=== PATIENT | male | born 1960 | race Caucasian/White ===

== ENCOUNTER → 2017-05-17 14:20 | Outpatient (CLI) | payer MEDICARE ==
[2017-05-18 14:54] LABS: BASOPHILS 0.2 % (0-2); EOSINOPHILS 1.3 % (0-7); HEMATOCRIT 42.4 % (42.0-54.0); IMMATURE GRANULOCYTES 0.3 % (0-5); LYMPHOCYTES 37.5 % (15-50); MEAN PLATELET VOLUME 12.3 fL (7.4-10.4); MONOCYTES 10.2 % (2-11); NEUTROPHILS 50.5 % (40-80); PLATELET COUNT 142 10x3/uL (130-400); RBC 4.51 10x6/uL (4.20-6.10); WBC 6.1 10x3/uL (4.8-10.8)
[2017-05-18 15:33] LABS: % SATURATION 36 % (15-55); IRON 109 ug/dl (35-150); TOTAL IRON BIND CAPACITY 299 ug/dl (260-445); UNSAT IRON BIND CAPACITY 190 ug/dl (150-375)
== END | disposition home or self-care (01) ==
LOC: D.LABREF 14:20
PROVIDERS: Internal Medicine Gastroenterology
DX: C18.2 Malignant neoplasm of ascending colon (principal)

== ENCOUNTER 2017-06-20 05:16 | Inpatient (IN) | payer MEDICARE ==
[2017-06-19 13:58] LABS: BASOPHILS 0.1 % (0-2); EOSINOPHILS 1.4 % (0-7); HEMATOCRIT 44.5 % (42.0-54.0); HEMOGLOBIN 14.6 g/dL (13.5-17.5); IMMATURE GRANULOCYTES 0.3 % (0-5); MCH 30.5 pg (26.0-34.0); MCHC 32.8 g/dL (31.0-37.0); MCV 93.1 fL (80.0-100.0); MEAN PLATELET VOLUME 11.3 fL (7.4-10.4); MONOCYTES 9.9 % (2-11); NEUTROPHILS 57.3 % (40-80); PLATELET COUNT 125 10x3/uL (130-400); RBC 4.78 10x6/uL (4.20-6.10); RDW 13.9 % (11.5-14.5); WBC 7.2 10x3/uL (4.8-10.8)
[2017-06-19 14:26] LABS: APTT 31.4 SECONDS (22.8-39.4); INR 0.92 (0.85-1.17); PROTIME 12.2 SECONDS (11.6-15.0)
[~2017-06-20 05:16] MED LIST: ASCORBIC ACID500 MG PO; ASPIRIN EC81 M1 PO; CARBATROL300 MG PO; CYCLOBENZAPRINE10 MG PO; DEPAKOTE ER500 MG PO; DETROL LA4 MG PO; ISOSORBIDE MONO60 M1 PO; LAMICTAL25 MG PO; LIPITOR40 MG PO; METOPROLOL TART50 MG PO; MINIPRESS 5 MG C5 MG PO; OMEPRAZOLE40 MG PO; OXYBUTYNIN CHLOR5 MG PO; RISPERDAL4 MG PO; SAW PALMETTO450 MG PO; SYNTHROID200 MC1 PO; TEMAZEPAM30 MG PO; VITAMIN D31000 UNIT PO
[2017-06-20 07:00] VITALS: BP 104/59; BMI 37.5
--- NOTE | 2017-06-20 08:43 | NUR ---
0835 CVL PLACEMENT BY NIKOLE MULLIGAN. PATIENT ALSO NOTED TO HAVING BRUISING ON RIGHT UPPER ARM, NIKOLE.
--- NOTE | 2017-06-20 12:30 | NUR ---
DR PEREZ / DR PRADO SUMMONED TO BEDSIDE FOR EVAL OF POST-DIGOXIN/A-FIB PT CONDITION. 12 LEAD EKG TAKEN. NO IMMEDIATE INTERVENTION PER DR PEREZ.
[2017-06-20 13:20] VITALS: BP 136/73
--- NOTE | 2017-06-20 13:20 | NUR ---
RECEIVED TO FLOOR FROM RECOVERY, NO FAMILY AT BEDSIDE, PT REQUEST WATER, LEMON SWABS GIVEN, DENIES NEEDS, ORIENTED TO ROOM, BED LOWEST POSITION, SCD'S ON, BACK UP WORKER STARTED, CALL LIGHT IN REACH, WILL CONTINUE TO MONITOR
[2017-06-20 14:02] VITALS: BP 136/73; BMI 37.3
--- NOTE | 2017-06-20 15:10 | OP ---
PATIENT NAME: JANELL CASANOVA MEDICAL RECORD: [id number] :64 LOCATION:[id number] ADMISSION DATE:06/20/17 SURGEON: PRABHU SNELL MD DATE OF OPERATION: 06/20/2017 SURGEON: Prabhu Snell MD PREOPERATIVE DIAGNOSIS: Ascending colon mass. POSTOPERATIVE DIAGNOSIS: Ascending colon mass. PROCEDURES PERFORMED: 1. Hand-assisted laparoscopic right hemicolectomy. 2. Laparoscopic cholecystectomy. ANESTHESIA: General. COMPLICATIONS: None. SPECIMENS: 1. Right colon. 2. Gallbladder. Case was clean contaminated. ESTIMATED BLOOD LOSS: 200 cc. OPERATIVE COURSE: After consent was obtained, the patient was taken to the operating room and placed in supine position on the operating table. Next, general anesthesia was given via endotracheal intubation after a time-out was taken to confirm the correct patient and procedure. The abdomen was prepped and draped in typical sterile fashion. An Ioban dressing was placed. Local anesthetic was injected just above the umbilicus. A stab incision was made with an 11 blade trocar. Using the 5-mm bladeless optical trocar, the abdomen was entered under direct laparoscopic vision. Adequate pneumoperitoneum was achieved. The abdominal cavity was inspected. No evidence of bowel injury. No evidence of bleeding. At this time, additional trocars were placed, 5-mm suprapubic trocar, 5-mm right lower quadrant trocar, 12-mm left lower quadrant trocar. The cecum was mobilized. The white line of Toldt was taken down using the Harmonic scalpel. Mobilization of the right colon continued along the line of Toldt. The hepatic flexure was mobilized to the mid transverse colon. There were dense adhesions between the transverse colon and the gallbladder. While dissecting the transverse colon off of the gallbladder, a cholecystotomy was made. At this time, I decided just to perform a laparoscopic cholecystectomy. The peritoneum was incised using electrocautery. Dissection was performed until the critical view was obtained, cystic duct lateral, cystic artery medial. Three clips were placed in the proximal cystic duct, 1 clip distal, and 2 clips in proximal cystic artery. The duct and artery were transected with laparoscopic Metzenbaum scissors. The remaining portion of the gallbladder was dissected off the liver bed using electrocautery. It was removed through the 12-mm trocar. Now that we had full mobilization of the ascending colon, the colon was retracted superiorly. The ileocolic vessels were identified. They were dissected using a combination of electrocautery and Maryland dissector. Once they were completely dissected, the vascular pedicle was taken with the firing of the linear cutting stapler. At this time, a lower midline incision OPERATIVE REPORT [id number] JANELL CASANOVA was made. The GelPort was inserted. The right colon was extracorporealized through the Eduardo retractor. The terminal ileum was transected approximately 5 cm from the ileocecal valve. The transverse colon was transected. The mesentery was taken along the right colon as well as the transverse colon as well as the right branch of the middle colic. This specimen was removed and sent for permanent pathology. A [id number] ileocolonic anastomosis was created. Common enterotomy was made with a linear cutting stapler. Common enterotomy was closed with a linear cutting stapler. Suture line was imbricated using 3-0 silk suture. At this time, the abdomen was copiously irrigated and suctioned. Careful attention was paid to hemostasis, which was obtained with clips and electrocautery. The abdominal cavity was then copiously irrigated. There was no evidence of bowel injury. No evidence of bleeding. At this time, all remaining instruments were removed, trocars were removed, the Eduardo retractor was removed. The fascial incision was closed with #1 looped PDS. All skin incisions were closed with berlin. At the end of the case, all needle and instrument counts were correct. No complications occurred. The patient was extubated and transferred to the PACU in stable condition. TRANSINT:[id number] Voice Confirmation ID: [id number] DOCUMENT ID: [id number] PRABHU SNELL MD at 1510 CC: [id number] DICTATION DATE: 06/20/17 1252 ENT NURSE: 06/20/17 1352 ADM IN [facility] [address] [place] [address]
[2017-06-20 19:30] VITALS: BP 133/67
[2017-06-20 23:30] VITALS: BP 149/91
--- NOTE | 2017-06-21 | NUR ---
PATIENT IS AWAKE, AND ALERT. HE TOLD ME "COME HERE" AND DID HAND MOTION FOR ME TO COME TO HIS ROOM WHEN HE SAW ME IN THE [facility]. WENT IN ROOM, HE RUBBED HIS ABDOMEN AND STATED "HURTING". PATIENT IS HOLDING SYSTEMS PROTECTION TECHNICIAN BUTTON IN HIS HAND. OFFERED PATIENT TO REPOSITION HIM, HE MOTIONED TO RAISE THE HOB, DID SO, THEN HE MOTIONED TO LAY IT BACK. HOB NOW AT 40 DEGREE ANGLE. PATIENT STATED "I WANT MY NURSE." BED IS IN LOWEST POSITION, CALL LIGHT IN REACH. TOLD PATIENT'S ASSIGNED NURSE THAT PATIENT IS REQUESTING HER.
[2017-06-21 04:00] VITALS: BP 166/67
[2017-06-21 06:34] LABS: BASOPHILS 0.1 % (0-2); EOSINOPHILS 0 % (0-7); HEMATOCRIT 38.5 % (42.0-54.0); HEMOGLOBIN 12.6 g/dL (13.5-17.5); IMMATURE GRANULOCYTES 0.1 % (0-5); MCH 30.6 pg (26.0-34.0); MCHC 32.7 g/dL (31.0-37.0); MCV 93.4 fL (80.0-100.0); MONOCYTES 14.9 % (2-11); NEUTROPHILS 69.9 % (40-80); PLATELET COUNT 117 10x3/uL (130-400); RBC 4.12 10x6/uL (4.20-6.10); RDW 14.2 % (11.5-14.5)
[2017-06-21 07:07] LABS: ALBUMIN 2.8 g/dL (3.4-5.0); ALKALINE PHOSPHATASE 87 U/L (46-116); ALT (SGPT) 28 U/L (10-68); CALC OSMOLALITY 280 mosm/kg (275-300); CALCIUM 8.5 mg/dL (8.5-10.1); CARBON DIOXIDE 26.3 mmol/L (21.0-32.0); CHLORIDE - SERUM 106 mmol/L (98-107); GLUCOSE 113 mg/dL (74-106); POTASSIUM - SERUM 3.9 mmol/L (3.5-5.1); PROTEIN - SERUM 6.7 g/dL (6.4-8.2); SODIUM 141 mmol/L (136-145); UREA NITROGEN 9 mg/dL (7-18); eGFR NON AFRICAN AMERICAN 83 mL/min (90-120)
[2017-06-21 07:11] LABS: WBC 9.3 10x3/uL (4.8-10.8)
--- NOTE | 2017-06-21 07:30 | NUR ---
RECIEVED PT DURING WALKING ROUNDS, PT LAYING IN BED WITH COMPLAINTS OF PAIN OF A 7 ON A SCALE OF 1-10. CUSTOMER OPERATIONS INTERN IN USE, FURTHER INSTRUCTED PT ON USE OF CUSTOMER OPERATIONS INTERN. ASSESSMENT DONE PER FLOWSHEET. BED IN LOW POSITION AND CALL LIGHT WITHIN REACH. WILL CONTINUE TO MONITOR.
[2017-06-21 08:31] VITALS: BP 139/64
--- NOTE | 2017-06-21 11:40 | NUR ---
PT TEMP READ 102.7, COVERED REMOVED AND TEMP RECHECKED AT THIS TIME, TEMP 101.4. IV TYLENOL GIVEN PER ORDER. WILL REASSESS.
--- NOTE | 2017-06-21 12:30 | NUR ---
TAUGHT PT ON INCENTIVE SPIROMETER, AND AMBULATED IN HALLWAY 30FT AND BACK TO BED, PT TOLERATED WELL. TEMP 99.8 AT THIS TIME. WILL CONTINUE TO MONITOR.
[2017-06-21 13:28] VITALS: BMI 37.3
[2017-06-21 13:59] VITALS: BP 127/66
[2017-06-21 16:01] VITALS: BP 113/73
[2017-06-21 20:00] VITALS: BP 132/63
--- NOTE | 2017-06-21 20:00 | NUR ---
ASSESSMENT COMPLETED PER FLOWSHEET AT THIS TIME. LEFT SUB-CLAVIAN LR@ 100. RIGHT HAND SL. FROST TO GRAVITY DRAINAGE WITH CLEAR YELLOW OUTPUT NOTED. PT IS AWAKE AND ALERT. SALES REPRESENTATIVE RURAL POWER IN USE FOR PAIN CONTROL. SCD'S OFF PER PT REQUEST. CALL LIGHT IN REACH, BED LOW. WILL CONTINUE TO MONITOR.
--- NOTE | 2017-06-21 21:17 | NUR ---
PRN TYLENOL IV ADMINISTERED AT THIS TIME FOR 101.3 FEVER.
--- NOTE | 2017-06-21 22:45 | NUR ---
REASSESSED TEMP 100.0
[2017-06-22 04:00] VITALS: BP 119/67
--- NOTE | 2017-06-22 06:24 | NUR ---
COILED TUBING OPERATOR MORPHINE SYRINGE CHANGED AT THIS TIME. SETTINGS 1MG/10 MINUTES/10MG FOUR HOUR LOCKOUT PER ORDER.
[2017-06-22 08:18] VITALS: BP 134/69
--- NOTE | 2017-06-22 09:04 | NUR ---
CALLED TELEMETRY PT RUNNING 160 NOW
--- NOTE | 2017-06-22 11:17 | NUR ---
TELEMETRY CALLED 171 UN-CONTROLLED A FIB, DR MAYLIN CANTU AND GAVE ORDER FOR CARDIZEM DRIP 10MG/HR, TRANSFERING TO 2115
--- NOTE | 2017-06-22 11:35 | NUR ---
RECIVED TO ROOM FROM MS. LAI GTT STARTED. NG PULLED OUT PER PT
--- NOTE | 2017-06-22 11:45 | NUR ---
DR SNELL HERE. OK TO LEAVE NG OUT. AND KEEP NPO
[2017-06-22 13:58] VITALS: BP 121/70
--- NOTE | 2017-06-22 17:28 | NUR ---
WITHOUT CHANGES OR DISTRESS NOTED AT THIS TIME.
[2017-06-22 20:00] VITALS: BP 107/62
--- NOTE | 2017-06-22 21:56 | NUR ---
INITIAL ROUNDS COMPELTED AT 1915 HRS. PT RESTING WITH EYES CLOSED. RESP EVEN AND REGULAR. ASSESSMENT COMPLETEDA T 2014 HRS. UCAF PER CM HR 123. PT ALERT. ANSWERS QUESTIONS APPROPRIATELY. LDLSC WITH LR AT 100CC/HR, CARDIZEM AT 10MG/HR (10CC). AND MORPHINE MANAGER LPN 1MG Q10 MINUTES WIT 10MG Q4HR LO. IV TO R HAND SL. O2 3LNC. DRSGS X4 TO ABD CLEAN, DRY AND INTACT. ABD LARGE WITH VERY HYPOACTIVE BS NOTED. FROST DRAINING DARK URINE. ORAL CARE DONE AT 2100 HRS. PT CURRENTLY RESTING WITH EYES CLOSED. RESP EVEN AND REGULAR. SR UP X2, CALL LIGHT WITHIN REACH.
[2017-06-23] VITALS: BP 130/70
--- NOTE | 2017-06-23 00:28 | NUR ---
REPOSITIONED IN BED FOR COMFORT. REINFORCED USE AND RATIONALE FOR LIME KILN WORKER MORPHINE. PT NEEDS FURTHER INSTRUCTION. WILL CONTINUE TO MONITOR.
--- NOTE | 2017-06-23 02:32 | NUR ---
UCAF PER CM HR 126. PT RESTING WITH EYES CLOSED. RESP EVEN AND REGULAR. SR UP X2, CALL LIGHT WITHIN REACH.
[2017-06-23 04:00] VITALS: BP 109/76
--- NOTE | 2017-06-23 04:20 | NUR ---
UCAF GR 118. REINFORCED USE OF SVP DIGITAL SALES FOOD & COOKING TO PT. WILL CONTINUE TO MONITOR.
--- NOTE | 2017-06-23 06:23 | NUR ---
CONTINUES TO HAVE UCAF PER CM. HR RUNNING 110'S TO 150'S. PT STATES MORPHINE CYCLE MANAGER CONTROLLING PAIN. NEEDS MET; WILL CONTINUE TO MONITOR.
--- NOTE | 2017-06-23 07:30 | NUR ---
RECEIVED PT IN BED AWAKE AND ALERT DENIES ANY NEEDS AT THIS TIME RESP UNLABORED NAD NOTED
[2017-06-23 07:58] LABS: BASOPHILS 0.1 % (0-2); EOSINOPHILS 0.6 % (0-7); HEMATOCRIT 35.5 % (42.0-54.0); HEMOGLOBIN 11.7 g/dL (13.5-17.5); IMMATURE GRANULOCYTES 0.2 % (0-5); LYMPHOCYTES 16.8 % (15-50); MCH 30.5 pg (26.0-34.0); MCV 92.7 fL (80.0-100.0); MEAN PLATELET VOLUME 11.4 fL (7.4-10.4); MONOCYTES 12.2 % (2-11); NEUTROPHILS 70.1 % (40-80); PLATELET COUNT 112 10x3/uL (130-400); RBC 3.83 10x6/uL (4.20-6.10); RDW 14.1 % (11.5-14.5)
[2017-06-23 08:00] VITALS: BP 101/65
[2017-06-23 08:03] LABS: CALC OSMOLALITY 283 mosm/kg (275-300); CALCIUM 8.4 mg/dL (8.5-10.1); CARBON DIOXIDE 25.7 mmol/L (21.0-32.0); CHLORIDE - SERUM 105 mmol/L (98-107); GLUCOSE 111 mg/dL (74-106); MAGNESIUM - SERUM 1.9 mg/dL (1.8-2.4); POTASSIUM - SERUM 3.9 mmol/L (3.5-5.1); SODIUM 142 mmol/L (136-145); UREA NITROGEN 13 mg/dL (7-18); eGFR NON AFRICAN AMERICAN 83 mL/min (90-120)
[2017-06-23 11:24] VITALS: BP 107/67
[2017-06-23 16:00] VITALS: BP 122/71
--- NOTE | 2017-06-23 21:49 | NUR ---
INITIAL ROUNDS COMPLETED AT 1910 HRS. PT VOMITED MODERFATE AMOUNT OF GREEN BILE LOOKING SECRETIONS. PT AND BED CLEANED. ZOFRAN 4MG SIVP GIVEN. ASSESSMENT COMPLETED AT 1999 HRS. VSS. UCAF PER CM HR 108. O2 3LNC. LUGS DIMINISHE DIN BASES BILAT. ABD LARGE, DISTENDED WITH VERY HYPOACTIVE BS NOTED IN ALL 4 QUADRANTS. INCISIONS X4 TO ABD CLEAN, DRY AND INTACT. SCD'S IN USE. REMOVED AND SKIN INSPECTED. NO BREAKDOWN NOTED. IV TO RHAND SL. IV TO LDLSC WITH LR AT 100CC/HR AND MORPHINE SHUT OFF WORKER 1MG Q10 MINUTES WITH 10MG Q4HR LO. CARDIZEM 10MG/HR TO OTHER PORT. PT DENIED ANY DISCOMFORT AT THAT TIME. FROST DRAINING DARK URINE. BLADDER TRAINING IN PROGRESS. PM MEDS GIVEN WITH SMALL SIPS OF WATER TO SWALLOW. HOB UP 45 DEGREES AT THAT TIME. PT CURRENTLY RESTING WIHT EYES SCLOSED. RESP EVEN AND REGULAR. SR UP X2, CALL LIGHT WITHN REACH.
[2017-06-23 22:17] VITALS: BP 116/61
--- NOTE | 2017-06-23 22:33 | NUR ---
LDLSC SOILED. CHANGED USING STERILE TECHNIQUE. IV TO HAND OCCLUDED. DC'D WITH CATHETER INTACT. PT TOLERATED WELL. WILL CONTINUE TO MONITOR.
--- NOTE | 2017-06-23 23:06 | NUR ---
PT VOMITIED A LARGE AMOUNT F BILE COLORED LIQUID. 2 LARGE PILLS NOTED ? DEPAKOTE. PT CLEANED AND BED LINENS CHANGED. PT REPOSITIONED IN BED FOR COMFORT. LDLSC REDRESSED USING STERILE TECHNIQUE. WILL CONTINUE TO MONITOR. SR UP X2, CALL LIGHT WITHIN REACH.
[2017-06-24] VITALS: BP 99/65
--- NOTE | 2017-06-24 00:13 | NUR ---
PT AWAKE; DENIES ANY DISCOMFORT. WILL CONTINUE TO MONITOR.
--- NOTE | 2017-06-24 02:21 | NUR ---
PT RESTING WITH EYES CLOSED. RESP EVEN AND REGULAR. FROST CLAMPED AT THIS TIME. BLADDER TRAINING IN PROGRESS.
[2017-06-24 04:00] VITALS: BP 121/61
--- NOTE | 2017-06-24 04:44 | NUR ---
PT RESTING WITH EYES CLOSED. RESP EVEN AND REGULAR. AWAKES TO VERBAL STIMULI. WILL CONTINUE TO MONITOR.
[2017-06-24 05:35] LABS: BASOPHILS 0.2 % (0-2); EOSINOPHILS 1.6 % (0-7); HEMATOCRIT 33.4 % (42.0-54.0); IMMATURE GRANULOCYTES 0.5 % (0-5); LYMPHOCYTES 22.3 % (15-50); MCH 30.3 pg (26.0-34.0); MCHC 32.9 g/dL (31.0-37.0); MEAN PLATELET VOLUME 11.2 fL (7.4-10.4); MONOCYTES 10.9 % (2-11); NEUTROPHILS 64.5 % (40-80); RBC 3.63 10x6/uL (4.20-6.10); RDW 14.2 % (11.5-14.5); WBC 8.4 10x3/uL (4.8-10.8)
[2017-06-24 05:36] LABS: PLATELET COUNT 153 10x3/uL (130-400)
[2017-06-24 05:49] LABS: CALC OSMOLALITY 282 mosm/kg (275-300); CARBON DIOXIDE 26.9 mmol/L (21.0-32.0); CHLORIDE - SERUM 107 mmol/L (98-107); CREATININE - SERUM 0.9 mg/dL (0.6-1.3); GLUCOSE 99 mg/dL (74-106); POTASSIUM - SERUM 3.8 mmol/L (3.5-5.1); SODIUM 142 mmol/L (136-145); UREA NITROGEN 13 mg/dL (7-18); eGFR NON AFRICAN AMERICAN > 90 mL/min (90-120)
--- NOTE | 2017-06-24 06:27 | NUR ---
PT PREMEDICATED WITH ZOFRAN PRIOR TO AM PILL GIVEN. PT TOLERATED WELL. FROST DC'D WITH CATHETER INTACT. CAF/UCAF DURING SHIFT HR 90'S TO 120'S. PT ONLY USED 1CC OF MORPHINE CORE FEEDER. PT CURENTLY DENIES ANY DISCOMFORT. NEEDS MET; WILL CONTINUE TO MONITOR.
--- NOTE | 2017-06-24 07:30 | NUR ---
RECEIVED PT IN BED EYES CLOSED RESP UNLABORED NAD NOTED
[2017-06-24 08:00] VITALS: BP 119/53
[2017-06-24 12:00] VITALS: BP 121/56
[2017-06-24 16:00] VITALS: BP 111/62
[2017-06-24 20:00] VITALS: BP 95/67
--- NOTE | 2017-06-24 20:17 | NUR ---
INIITAL ROUNDS COMPETED AT 1920 HRS. PT DENIES NAY DISCOMFORT. ASSESSMENT COMPETEDA T 1950 HRS. UCAF PER CM HR 116. O2 3LNC. LUNGS DIMINISHE DIN BASES BILAT. IV LDLSC WITH LR AT 100CC/HR AND MORPHINE CUSTOMER SERVICE TELLER 1MG Q10 MINUTES WITH 10MG Q4HR LO. CARDIZEM AT 1MG/ID (10CC/HR). TO WHITE PORT. LUNGS DIMINISHED IN BASES BILAT. ABD LARGE WITH HYPOACTIVE BS NOTED IN ALL 4 QUDRANTS. DRESSINGS TO ABD X4 CDI. SCD'S IN USE. SCD'S REMOVED AND SKIN INSPECTED. NO BREAKDOWN NOTED. JUVE CALVERT PRIOR TO PM MEDS. WILL CONTINUE TO MONITOR. SR UP X2, CALL LIGHT WITHIN REACH.
--- NOTE | 2017-06-24 21:38 | NUR ---
PT INCONTINENT OF A LARGE AMOUNT OF URINE. BED BATH DONE, BED LINENS CHANGED. PT TOLERATED ACTIVITY WELL. WILL CONTINUE TO MONITOR.
[2017-06-25] VITALS: BP 97/63
--- NOTE | 2017-06-25 00:29 | NUR ---
PT TALKING TO SELF IN HIS SLEEP. NO DISTRESS NOTED. WILL CONTINUE TO MONITOR.
[2017-06-25 04:00] VITALS: BP 107/73
--- NOTE | 2017-06-25 04:47 | NUR ---
PT RESTING WITH EYES CLOSED. RESP EVEN AND REGULAR. SR UP X2, CALL LIGHT WITHIN REACH.
--- NOTE | 2017-06-25 05:27 | NUR ---
PT VOITED A SMALL AMOUNT OF GREEN LIQUID. PT CLEANED. ZOFRAN 4MG SIVP GIVEN. WILL CONTINUE TO MONITOR.
[2017-06-25 06:29] LABS: BASOPHILS 0.3 % (0-2); EOSINOPHILS 2.9 % (0-7); HEMOGLOBIN 10.9 g/dL (13.5-17.5); IMMATURE GRANULOCYTES 0.4 % (0-5); LYMPHOCYTES 21.9 % (15-50); MCH 30.5 pg (26.0-34.0); MCV 92.4 fL (80.0-100.0); MEAN PLATELET VOLUME 10.6 fL (7.4-10.4); MONOCYTES 10.6 % (2-11); NEUTROPHILS 63.9 % (40-80); PLATELET COUNT 178 10x3/uL (130-400); RBC 3.57 10x6/uL (4.20-6.10); RDW 14.5 % (11.5-14.5); WBC 6.8 10x3/uL (4.8-10.8)
[2017-06-25 06:51] LABS: CALC OSMOLALITY 277 mosm/kg (275-300); CALCIUM 8.5 mg/dL (8.5-10.1); CARBON DIOXIDE 27.3 mmol/L (21.0-32.0); CHLORIDE - SERUM 104 mmol/L (98-107); CREATININE - SERUM 0.9 mg/dL (0.6-1.3); GLUCOSE 106 mg/dL (74-106); MAGNESIUM - SERUM 1.9 mg/dL (1.8-2.4); SODIUM 139 mmol/L (136-145); UREA NITROGEN 12 mg/dL (7-18); eGFR NON AFRICAN AMERICAN > 90 mL/min (90-120)
[2017-06-25 06:55] LABS: POTASSIUM - SERUM 3.2 mmol/L (3.5-5.1)
[2017-06-25 08:00] VITALS: BP 109/62
--- NOTE | 2017-06-25 09:49 | NUR ---
N/V CONT. PHENERGAN 12.5MG GIVEN. IV PATENT. CALL LIGHT IN REACH. WILL CONT. TO MONITOR.
--- NOTE | 2017-06-25 11:15 | NUR ---
UP AMBULATING HALLWAY WITH PT ASSIST.
--- NOTE | 2017-06-25 12:20 | NUR ---
Nutrition Follow Up: Chart reviewed. Pt with some N/V this am. Wt stable. No BM. Meds and labs reviewed. Pt is NPO/Clear Liquids x 6 days. If diet unable to advance within the next 24 hours rec start Pro[address]amine. RD following.
--- NOTE | 2017-06-25 14:54 | NUR ---
AMBULATES HALLWAY WITH PT ASSIST.
[2017-06-25 16:00] VITALS: BP 104/61
--- NOTE | 2017-06-25 18:21 | NUR ---
Is the patient Alert and Oriented? No 0 * How many steps to enter\\exit or inside your home? none 0 * PCP DR Deras 0 * Pharmacy [facility] in [facility] 0 * Preadmission Environment Other 0 * Other Environment [facility] * Facility Name as above 0 * ADLs Partial Dependent 0 * Partial ADLs (Assistance needed) Bathing Dressing Medication Management 0 * Equipment None 0 * Other Equipment N/A 0 * List name and contact numbers for known caregivers / representatives who currently or will assist patient after discharge: Caitlyn Oliva -BREAD PACKER- "MOM"- [phone] Shanti Oliva- Surgical Aide- [phone]- [facility] Office number 0 * Community resources currently utilized Other 0 * Please name any agencies selected above. [facility] for 5 hrs /5 days / weekly 0 * Additional services required to return to the preadmission environment? Yes 0 * Can the patient safely return to the preadmission environment? Yes 0 * Has this patient been hospitalized within the prior 30 days at any hospital? No 0
--- NOTE | 2017-06-25 18:22 | NUR ---
Patient Name: JANELL CASANOVA Admission Status: Elective Accout number: [id number] Admission Date: 06-20-2017 : 1960 Admission Diagnosis:OTHER SPECIFIED DISEASES OF INTESTINE Attending: PRABHU SNELL Current LOS: 5 Anticipated DC Date: Planned Disposition: Other Type of Facility Primary Insurance: MEDICARE A & B Discharge Planning Comments: CM WENT TO PATIENT'S BEDSIDE TO DISCUSS DISCHARGE NEEDS AND PLAN. HE STATED CM COULD COME IN TO SPEAK WITH HIM BUT HE FELL ASLEEP AFTER EACH QUESTION. PATIENT WAS VERY SLEEPY. ?? MEDICATED FOR NAUSEA EARLIER. TC TO LESLIEARAVIND MURILLO, AN EMERGENCY CONTACT. MS MURILLO IS HIS FLOTATION TENDER FROM [facility]. SHE ASSIST HIM AT HOME SUN- SUNDAY 06-08 THEN HE GOES TO THE [facility]. SHE RETURNS TO ASSIST HIM 1500- 1800. SHE ASSIST W/ HIS SHOPPING, GOING TO APPTS DR LILLY, ETC. HE REFERS TO HER "MOM" SOMETIMES. HIS FACILITY TECHNICIAN IS MILTON VIRGEN. SHE IS TO BE CONTACTED W/ HIS DISCHARGE PLANS AND NEEDS. HER OFFICE PHONE NUMBER IS [phone]. MS MURILLO HAS THE CM'S PRIVATE NUMBER. CALL HER WHEN D/C IS KNOWN. SHE WILL LIKELY PROVIDE TRANSPORTATION. THE PLAN IS FOR RETURN TO HOME WITH H/H AT DISCHARGE. PT LIVES IN A [facility]. NO STEPS TO ENTER HIS HOME. HAS NO DME EXCEPT A SHOWER BENCH AND SAFETY BARS TO STEP INTO HIS TUB. PCP- DR MARAVILLA REC[facility] CENTER OPERATOR- DR PEREZ [facility]- [facility] TRANSPORTATION WILL BE PROVIDED BY CAREGIVER AT DISCHARGE. CM TO FOLLOW TO ASSIST IS APPROPRIATE. Arranging Funeral Director: Corinna Lawrence
[2017-06-25 19:00] VITALS: BP 139/64
[2017-06-26] VITALS: BP 115/60
[2017-06-26 04:00] VITALS: BP 164/62
--- NOTE | 2017-06-26 05:51 | NUR ---
PT IS ALERT AND HAS BEEN AWAKE MOST OF THE NIGHT.
--- NOTE | 2017-06-26 05:56 | NUR ---
PT HAS HAD 3 EPISODES OF URINARY INCONTINENCE WITH COMPLETE BATH/LINEN CHANGE EACH TIME. HE HAS REMAINED IN UCAF RATE AROUND 120-130 ALL NIGHT. ALL ABDOMINAL INCISIONS ARE CLEAN AND DRY. CALL LIGHT IN REACH.
[2017-06-26 05:57] LABS: BASOPHILS 0.3 % (0-2); EOSINOPHILS 1.6 % (0-7); HEMATOCRIT 34.5 % (42.0-54.0); HEMOGLOBIN 11.2 g/dL (13.5-17.5); IMMATURE GRANULOCYTES 0.7 % (0-5); LYMPHOCYTES 17.9 % (15-50); MCH 30.4 pg (26.0-34.0); MCHC 32.5 g/dL (31.0-37.0); MCV 93.8 fL (80.0-100.0); MEAN PLATELET VOLUME 10.6 fL (7.4-10.4); MONOCYTES 10.4 % (2-11); NEUTROPHILS 69.1 % (40-80); PLATELET COUNT 209 10x3/uL (130-400); RBC 3.68 10x6/uL (4.20-6.10)
[2017-06-26 05:59] LABS: WBC 8.7 10x3/uL (4.8-10.8)
[2017-06-26 06:18] LABS: CALC OSMOLALITY 274 mosm/kg (275-300); CALCIUM 8.4 mg/dL (8.5-10.1); CARBON DIOXIDE 25.5 mmol/L (21.0-32.0); CHLORIDE - SERUM 103 mmol/L (98-107); CREATININE - SERUM 0.9 mg/dL (0.6-1.3); GLUCOSE 95 mg/dL (74-106); MAGNESIUM - SERUM 2.1 mg/dL (1.8-2.4); POTASSIUM - SERUM 3.4 mmol/L (3.5-5.1); SODIUM 138 mmol/L (136-145); UREA NITROGEN 11 mg/dL (7-18); eGFR NON AFRICAN AMERICAN > 90 mL/min (90-120)
[2017-06-26 07:42] VITALS: BP 122/77
--- NOTE | 2017-06-26 10:05 | NUR ---
SUPPOSITORY GIVEN WITH GOOD RESULTS NOTED.
[2017-06-26 11:23] VITALS: BP 112/65
--- NOTE | 2017-06-26 11:44 | NUR ---
UP AMBULATING HALLWAY WITH PT ASSIST.
[2017-06-26 16:03] VITALS: BP 123/71
--- NOTE | 2017-06-26 19:26 | NUR ---
ASSESSMENT COMPELTE, IN BED RESTING WITH EYES CLOSED, RESPONDS TO VERBAL STIMULI. RESPERATIONS EVEN ON O2 AT 3 LITER VIA NC. LEFT SUB. CLAVIAN TRIPLE LUEMEN WITH CARDIZEM INFUSING AT 10 CC/HR AND LR INFUSING AT 100 CC/HR. DRSG INTACT. SR UP X2 BED IN LOWEST POSITION. CL IN REACH. WILL CONT TO MONITOR.
--- NOTE | 2017-06-26 21:26 | NUR ---
HS MEDS GIVEN WITH FRESH ICE WATER, PT DENIES PAIN OR NEEDS. BED LOW, CL IN REACH.
[2017-06-26 22:04] VITALS: BP 114/71
--- NOTE | 2017-06-27 00:34 | NUR ---
ASSISTED BLACK STUDIES PROFESSOR WITH GIVING PT BATH AND LINEN CHANGE. REPOSITIONED IN BED FOR COMFORT. BED LOW, CL IN REACH.
[2017-06-27 02:07] VITALS: BP 125/76
--- NOTE | 2017-06-27 04:10 | NUR ---
NOTIFIED BY MT THAT PT HAS CONVERTED TO SR WITH A HR OF 67, WILL CONT TO MONITOR.
--- NOTE | 2017-06-27 04:18 | NUR ---
LINUX SERVER ADMINISTRATOR AT BED SIDE TO OBTAIN VITALS.
[2017-06-27 05:25] VITALS: BP 131/80
--- NOTE | 2017-06-27 05:28 | NUR ---
PT RESTING COMFORTABLY, EYES CLOSED, RESPIRATIONS EVEN AND UNLABORED. CONTINUE TO MONITOR CLOSELY.
[2017-06-27 06:29] LABS: BASOPHILS 0.4 % (0-2); EOSINOPHILS 3.4 % (0-7); HEMATOCRIT 32.4 % (42.0-54.0); HEMOGLOBIN 10.5 g/dL (13.5-17.5); IMMATURE GRANULOCYTES 1.3 % (0-5); LYMPHOCYTES 22.3 % (15-50); MCH 30.3 pg (26.0-34.0); MCHC 32.4 g/dL (31.0-37.0); MCV 93.6 fL (80.0-100.0); MEAN PLATELET VOLUME 10.5 fL (7.4-10.4); MONOCYTES 8.9 % (2-11); NEUTROPHILS 63.7 % (40-80); PLATELET COUNT 228 10x3/uL (130-400); RBC 3.46 10x6/uL (4.20-6.10); RDW 14.8 % (11.5-14.5); WBC 7.6 10x3/uL (4.8-10.8)
[2017-06-27 06:58] LABS: CALC OSMOLALITY 281 mosm/kg (275-300); CALCIUM 7.7 mg/dL (8.5-10.1); CARBON DIOXIDE 26.9 mmol/L (21.0-32.0); CHLORIDE - SERUM 106 mmol/L (98-107); CREATININE - SERUM 0.8 mg/dL (0.6-1.3); GLUCOSE 76 mg/dL (74-106); POTASSIUM - SERUM 3.7 mmol/L (3.5-5.1); SODIUM 142 mmol/L (136-145); UREA NITROGEN 12 mg/dL (7-18); eGFR NON AFRICAN AMERICAN > 90 mL/min (90-120)
[2017-06-27 08:00] VITALS: BP 141/57
--- NOTE | 2017-06-27 10:09 | NUR ---
TELEMETRY SR. UP AMBULATING HALLWAY WITH PT ASSIST. WILL CONT. PLAN OF CARE.
[2017-06-27 12:00] VITALS: BP 161/78
--- NOTE | 2017-06-27 21:05 | NUR ---
HS MEDS GIVEN WITH FRESH ICE WATER, PT INCONTINENT OF BOWEL, ASSISTED INSPECTOR OF WEIGHTS AND MEASURES WITH CLEANING OF PT AND LINEN CHANGE.
[2017-06-27 22:06] VITALS: BP 153/77
--- NOTE | 2017-06-27 23:33 | NUR ---
PT VOMITING, PHENERGAN 12.5 MG GIVE TO LEFT SUBCLAVIAN. BATH AND LINEN CHANGE COMPLETE.
[2017-06-28 01:54] VITALS: BP 153/73
--- NOTE | 2017-06-28 03:16 | NUR ---
ENTERED ROOM, PT SITTING UP IN CHAIR, PT HAD VOMITED AND HAD, HAD A BOWEL MOVEMENT ON HIS SELF, CLEANED PT, ASSISTED BACK TO BED, BATH AND LINEN CHANGE COMPLETE. CENTRAL LINE DRSG CHANGED USING STERILE TECHNIQUE, INSTRUCTED PT TO CALL FOR ASSISTANCE WHEN NEEDING HELP.
--- NOTE | 2017-06-28 05:13 | NUR ---
AM LAB DRAWN FROM LEFT SUBCLAVIAN TRIPLE LUEMEN, TUBE GIVEN TO AZUL HOOP RIVETING MACHINE OPERATOR HELPER.
--- NOTE | 2017-06-28 05:17 | NUR ---
CALL LIGHT IN REACH, WILL CONTINUE WITH PLAN OF CARE.
[2017-06-28 05:42] LABS: BASOPHILS 0.1 % (0-2); EOSINOPHILS 0.9 % (0-7); HEMATOCRIT 37.7 % (42.0-54.0); HEMOGLOBIN 12.4 g/dL (13.5-17.5); LYMPHOCYTES 8.9 % (15-50); MCH 30.7 pg (26.0-34.0); MCHC 32.9 g/dL (31.0-37.0); MCV 93.3 fL (80.0-100.0); MEAN PLATELET VOLUME 10.7 fL (7.4-10.4); MONOCYTES 8.1 % (2-11); RBC 4.04 10x6/uL (4.20-6.10); RDW 14.9 % (11.5-14.5); WBC 6.8 10x3/uL (4.8-10.8)
[2017-06-28 05:52] LABS: PLATELET COUNT 274 10x3/uL (130-400)
[2017-06-28 05:55] LABS: CALC OSMOLALITY 279 mosm/kg (275-300); CALCIUM 8.4 mg/dL (8.5-10.1); CARBON DIOXIDE 27.1 mmol/L (21.0-32.0); CHLORIDE - SERUM 103 mmol/L (98-107); MAGNESIUM - SERUM 2.1 mg/dL (1.8-2.4); POTASSIUM - SERUM 3.3 mmol/L (3.5-5.1); SODIUM 140 mmol/L (136-145); UREA NITROGEN 13 mg/dL (7-18); eGFR NON AFRICAN AMERICAN 83 mL/min (90-120)
[2017-06-28 06:10] LABS: GLUCOSE 124 mg/dL (74-106)
--- NOTE | 2017-06-28 07:30 | NUR ---
RECEIVED PT IN BED GREEN EMESIS NOTEDON PT AND BED PT HAD SMALL EPISODE OF LOOSE BM BED BATH AND TOTAL BED CHANGE DONE AT THIS TIME PT TOLERATED WELL
[2017-06-28 08:00] VITALS: BP 106/68
--- NOTE | 2017-06-28 08:15 | NUR ---
ZOFRAN 4 MG GIVEN SIVP FOR C/O NAUSEA VOMITING
[2017-06-28 11:47] VITALS: BP 141/67
[2017-06-28 16:00] VITALS: BP 145/74
--- NOTE | 2017-06-28 17:00 | NUR ---
NG TUBE INSERTED THRU LT NARE VERIFIED BY ASCULTATION CONNECTED TO LOW INTERMITTENT SUCTION 1300 CC CLOUDY YELLOW DRAINAGE UPON IMMEDIATE RETURN PT TOLERATED WELL
--- NOTE | 2017-06-28 18:33 | NUR ---
PT FOUND HOLDING NG TUBE IN HAND STATED HE WANTED SOME WATER EXPLAINED COULD NOT HAVE WATER AND WAS GOING TO HAVE TO KEEP NG TUBE DOWN OR HE WOULD KEEP VOMITTING REFUSED AT THIS TIME
[2017-06-28 20:00] VITALS: BP 132/69
--- NOTE | 2017-06-28 23:06 | NUR ---
NGT INSERTED TO RIGHT NARE, YELLOW BILE IMMEDIATELY EMPTIED FROM TUBE. HOOKED TO LIS. 1350 OUT AT THIS TIME. WILL CONTINUE TO MONITOR.
[2017-06-29] VITALS: BP 125/69
--- NOTE | 2017-06-29 03:25 | NUR ---
DRESSING CHANGE DONE TO ABDOMEN. PATIENT TOLERATED WELL. CALL LIGHT IN REACH
[2017-06-29 04:00] VITALS: BP 114/75
[2017-06-29 06:41] LABS: BASOPHILS 0.1 % (0-2); EOSINOPHILS 0 % (0-7); HEMATOCRIT 35.7 % (42.0-54.0); HEMOGLOBIN 11.6 g/dL (13.5-17.5); IMMATURE GRANULOCYTES 0.7 % (0-5); LYMPHOCYTES 9.4 % (15-50); MCH 30.2 pg (26.0-34.0); MCHC 32.5 g/dL (31.0-37.0); MEAN PLATELET VOLUME 10.9 fL (7.4-10.4); MONOCYTES 7.1 % (2-11); NEUTROPHILS 82.7 % (40-80); PLATELET COUNT 317 10x3/uL (130-400); RBC 3.84 10x6/uL (4.20-6.10)
[2017-06-29 06:42] LABS: WBC 14.5 10x3/uL (4.8-10.8)
[2017-06-29 06:55] LABS: CALCIUM 8.7 mg/dL (8.5-10.1); CARBON DIOXIDE 27.3 mmol/L (21.0-32.0); CREATININE - SERUM 1.1 mg/dL (0.6-1.3); MAGNESIUM - SERUM 2.4 mg/dL (1.8-2.4); POTASSIUM - SERUM 3.3 mmol/L (3.5-5.1)
[2017-06-29 08:56] VITALS: BP 127/67
--- NOTE | 2017-06-29 08:59 | NUR ---
OK FOR PO MEDS WITH SIPS OF WATER PER DR. SNELL.
--- NOTE | 2017-06-29 10:12 | NUR ---
UP AMBULATING HALLWAY WITH PT ASSIST.
--- NOTE | 2017-06-29 10:24 | NUR ---
DRSG CHANGED TO ABD. WOUND PACKED WITH GAUZE AND COVERED WITH ABD PAD. SERUOS DRAINAGE NOTED.
[2017-06-29 11:39] VITALS: BP 117/69
[2017-06-29 15:42] VITALS: BP 110/57
--- NOTE | 2017-06-29 19:20 | NUR ---
PT RESTING IN BED. CHANGED PT TOP SHEET, PT HAS PROCAL INFUSING AT 100 AND NS INFUSING AT 30. PT IS PULLED UP IN BED. MAX ASSIST. PT DENIES ANY NEEDS. NO S/S OF DISTRESS. BED LOW AND CALL LIGHT IN REACH. WILL CPOC
[2017-06-29 21:06] VITALS: BP 105/61
--- NOTE | 2017-06-30 00:13 | NUR ---
NS D/C PER DR. SNELL. STOPPED SALINE AND FLUSHED LINE. PROCAL STILL INFUSING @ 100 TO LEFT SUBCLAVIN. PT ASLEEP RESPIRATIONS EVEN AND UNLABORED. BED LOW AND CALL LIGHT IN REACH. NO S/S OF DISTRESS. WILL CPOC
[2017-06-30 00:34] VITALS: BP 121/55
--- NOTE | 2017-06-30 03:32 | NUR ---
PT ABD DRSG CHANGED. GAUZED PACKED IN OPEN AREA OF WOUND NOT CHANGED, NO ORDERS WERE FOUND OF WHAT IS NEEDED. CLEANED AREA AND PUT GAUZE AND ABD PAD. PT NOW BEING CLEANED AND CHANGED. MODERATE INCONT BM, GOWN AND LINEN CHANGED. MAX ASSIST. PT NOW REPOSITIONED IN BED. SCD'S REAPPLIED. PT DENIES ANY NEEDS. NO S/S OF DISTRESS. WILL CPOC
[2017-06-30 04:00] VITALS: BP 102/54
--- NOTE | 2017-06-30 06:27 | NUR ---
PT ASLEEP. RESPONDS TO VERBAL STIMULI. PT TAKES MORNING MED WITH A SIP OF WATER. PROCAL INFUSING TO LEFT SUB CLAV. PT HOB 35. PT DENIES ANY NEEDS. NO S/S OF DISTRESS. WILL CPOC
[2017-06-30 06:34] LABS: BASOPHILS 0.1 % (0-2); EOSINOPHILS 1.5 % (0-7); HEMATOCRIT 31.1 % (42.0-54.0); IMMATURE GRANULOCYTES 0.4 % (0-5); LYMPHOCYTES 15.8 % (15-50); MCH 30.1 pg (26.0-34.0); MCHC 32.2 g/dL (31.0-37.0); MCV 93.7 fL (80.0-100.0); MONOCYTES 7.1 % (2-11); NEUTROPHILS 75.1 % (40-80); PLATELET COUNT 262 10x3/uL (130-400); RBC 3.32 10x6/uL (4.20-6.10); RDW 15.1 % (11.5-14.5)
[2017-06-30 06:37] LABS: WBC 10.4 10x3/uL (4.8-10.8)
[2017-06-30 06:53] LABS: CALC OSMOLALITY 283 mosm/kg (275-300); CARBON DIOXIDE 32.2 mmol/L (21.0-32.0); CHLORIDE - SERUM 103 mmol/L (98-107); CREATININE - SERUM 0.9 mg/dL (0.6-1.3); GLUCOSE 113 mg/dL (74-106); MAGNESIUM - SERUM 2.5 mg/dL (1.8-2.4); PHOSPHOROUS 1.6 mg/dL (2.5-4.9); POTASSIUM - SERUM 3.3 mmol/L (3.5-5.1); SODIUM 141 mmol/L (136-145); UREA NITROGEN 18 mg/dL (7-18); eGFR NON AFRICAN AMERICAN > 90 mL/min (90-120)
[2017-06-30 07:16] VITALS: BP 102/61
[2017-06-30 11:04] VITALS: BP 117/82
[2017-06-30 12:30] LABS: CALC OSMOLALITY 277 mosm/kg (275-300); CALCIUM 7.9 mg/dL (8.5-10.1); CHLORIDE - SERUM 103 mmol/L (98-107); CREATININE - SERUM 0.8 mg/dL (0.6-1.3); GLUCOSE 106 mg/dL (74-106); POTASSIUM - SERUM 3.9 mmol/L (3.5-5.1); SODIUM 138 mmol/L (136-145); UREA NITROGEN 19 mg/dL (7-18); eGFR NON AFRICAN AMERICAN > 90 mL/min (90-120)
--- NOTE | 2017-06-30 14:14 | NUR ---
AMBULATES HALLWAY WITH PT ASSIST. DRSG CHANGED TO ABD DUE TO SEOUS DRAINAGE. CALL LIGHT IN REACH. WILL CONT. PLAN OF CARE.
[2017-06-30 15:11] VITALS: BP 110/62
[2017-06-30 21:24] VITALS: BP 130/63
[2017-07-01] VITALS (7 sets, daily range): BP systolic 107–130; BP diastolic 62–96
--- NOTE | 2017-07-01 03:00 | NUR ---
PT WITH VOMITING AND CLEAR EMESIS MULTIPLE TIMES. ZOFRAN 4 MG IV GIVEN. REGLAN 10 MG IV SCHEDULED GIVEN AT THIS TIME WELL. PT HAS HAD SEVERAL LOOSE WATERY STOOLS AND C/O "BELLY" PAIN. WILL CONT TO PROVIDE WITH INCONTINENT CARE. WILL MONITOR.
[2017-07-01 05:31] LABS: BASOPHILS 0.1 % (0-2); EOSINOPHILS 0.9 % (0-7); HEMATOCRIT 33.8 % (42.0-54.0); HEMOGLOBIN 10.8 g/dL (13.5-17.5); IMMATURE GRANULOCYTES 0.8 % (0-5); LYMPHOCYTES 13.6 % (15-50); MCH 29.7 pg (26.0-34.0); MCV 92.9 fL (80.0-100.0); MEAN PLATELET VOLUME 11.1 fL (7.4-10.4); NEUTROPHILS 77.6 % (40-80); PLATELET COUNT 300 10x3/uL (130-400); RBC 3.64 10x6/uL (4.20-6.10); WBC 9.8 10x3/uL (4.8-10.8)
[2017-07-01 05:36] LABS: CALC OSMOLALITY 275 mosm/kg (275-300); CALCIUM 8.4 mg/dL (8.5-10.1); CARBON DIOXIDE 33.1 mmol/L (21.0-32.0); CHLORIDE - SERUM 98 mmol/L (98-107); CREATININE - SERUM 0.9 mg/dL (0.6-1.3); GLUCOSE 138 mg/dL (74-106); MAGNESIUM - SERUM 2.3 mg/dL (1.8-2.4); POTASSIUM - SERUM 3.4 mmol/L (3.5-5.1); SODIUM 137 mmol/L (136-145); UREA NITROGEN 13 mg/dL (7-18); eGFR NON AFRICAN AMERICAN > 90 mL/min (90-120)
--- NOTE | 2017-07-01 09:18 | NUR ---
IRVIN TO PHUONG CHANGED BY DR. SNELL.
--- NOTE | 2017-07-01 11:30 | NUR ---
AMBULATES WITH PT ASSIST.
--- NOTE | 2017-07-01 13:01 | NUR ---
DRSG CHANGED TO ABD DUE TO DRAINAGE. SOILED DRSG CHANGED TO CVL SITE. ASSISTED BACK TO BED. WILL CONT. PLAN OF CARE.
[2017-07-02 05:00] LABS: BASOPHILS 0.2 % (0-2); EOSINOPHILS 1.7 % (0-7); HEMATOCRIT 32.9 % (42.0-54.0); HEMOGLOBIN 10.5 g/dL (13.5-17.5); IMMATURE GRANULOCYTES 1.8 % (0-5); LYMPHOCYTES 26.4 % (15-50); MCH 29.8 pg (26.0-34.0); MCHC 31.9 g/dL (31.0-37.0); MCV 93.5 fL (80.0-100.0); MEAN PLATELET VOLUME 11.1 fL (7.4-10.4); MONOCYTES 8.4 % (2-11); NEUTROPHILS 61.5 % (40-80); PLATELET COUNT 307 10x3/uL (130-400); RBC 3.52 10x6/uL (4.20-6.10); RDW 14.9 % (11.5-14.5); WBC 8.7 10x3/uL (4.8-10.8)
[2017-07-02 05:20] VITALS: BP 131/56
[2017-07-02 05:40] LABS: CALC OSMOLALITY 275 mosm/kg (275-300); CALCIUM 8.4 mg/dL (8.5-10.1); CHLORIDE - SERUM 101 mmol/L (98-107); CREATININE - SERUM 0.9 mg/dL (0.6-1.3); GLUCOSE 102 mg/dL (74-106); MAGNESIUM - SERUM 2.3 mg/dL (1.8-2.4); POTASSIUM - SERUM 3.9 mmol/L (3.5-5.1); SODIUM 138 mmol/L (136-145); UREA NITROGEN 13 mg/dL (7-18); eGFR NON AFRICAN AMERICAN > 90 mL/min (90-120)
[2017-07-02 08:34] VITALS: BP 131/68
--- NOTE | 2017-07-02 10:45 | NUR ---
PATIENT UP IN CHAIR AND USING URINAL WITH FAMILY ASSISTANCE. JOHN DENIES ANY PAIN AT THIS TIME. HAS A WET COUGH, AND SAYS HE WANTS TO EAT. PATIENT IS ON A LIQUID DIET AT THIS TIME. MEDICATIONS ADMINISTERED PER HOSPITAL PROTOCAL, PATIENT TOLERATED.
--- NOTE | 2017-07-02 10:51 | NUR ---
TELEMETRY IS SR 81.
[2017-07-02 12:23] VITALS: BP 106/63
--- NOTE | 2017-07-02 13:36 | NUR ---
SITTING UP IN CHAIR. NO COMPLAINT OF NAUSEA NOR EMESIS. MONITOR SHOWS NSR@ 80.
[2017-07-02 16:43] VITALS: BP 100/62
--- NOTE | 2017-07-02 17:01 | NUR ---
RESTING COMFORTABLY, DENIES ANY NEEDS AT THIS TIME. C/O HUNGER BECAUSE HE IS ON A LIQUID DIET TO AVOID N/V. NO B/M TODAY TO COLLECT FOR LAB. THIS MORNING HE HAD INCONTINENT STOOL IN BED. TELEMETRY SHOWS SR 76.
--- NOTE | 2017-07-02 17:04 | NUR ---
ABDOMINAL DRESSING CLEAN DRY AND INTACT.
--- NOTE | 2017-07-02 18:49 | NUR ---
CHANGED ABDOMINAL DRESSING, PATIENT TOLERATED.
[2017-07-02 19:00] VITALS: BP 134/78
[2017-07-03] VITALS: BP 123/62
--- NOTE | 2017-07-03 00:30 | NUR ---
PT GIVEN COMPLETE BED BATH AND LINEN CHANGE. DRESSING TO ABD CHANGED AT THIS TIME. MODERATE AMOUNT SEROUS DRAINAGE NOTED. WILL CONT TO MONITOR.
--- NOTE | 2017-07-03 01:59 | NUR ---
PT RESTING SOUNDLY WITHOUT C/O OR DISTRESS NOTED. CALL LIGHT WITHIN REACH. WILL MONITOR.
[2017-07-03 04:00] VITALS: BP 146/79
[2017-07-03 05:59] LABS: BASOPHILS 0.3 % (0-2); HEMATOCRIT 34.5 % (42.0-54.0); HEMOGLOBIN 10.9 g/dL (13.5-17.5); IMMATURE GRANULOCYTES 4.4 % (0-5); MCH 29.6 pg (26.0-34.0); MCHC 31.6 g/dL (31.0-37.0); MCV 93.8 fL (80.0-100.0); MONOCYTES 9.9 % (2-11); NEUTROPHILS 57.4 % (40-80); PLATELET COUNT 334 10x3/uL (130-400); RBC 3.68 10x6/uL (4.20-6.10); RDW 15.1 % (11.5-14.5); WBC 9.2 10x3/uL (4.8-10.8)
[2017-07-03 06:21] LABS: CALC OSMOLALITY 275 mosm/kg (275-300); CALCIUM 8.2 mg/dL (8.5-10.1); CARBON DIOXIDE 29.2 mmol/L (21.0-32.0); CHLORIDE - SERUM 101 mmol/L (98-107); CREATININE - SERUM 0.8 mg/dL (0.6-1.3); GLUCOSE 91 mg/dL (74-106); MAGNESIUM - SERUM 2.3 mg/dL (1.8-2.4); POTASSIUM - SERUM 4.1 mmol/L (3.5-5.1); SODIUM 138 mmol/L (136-145); UREA NITROGEN 12 mg/dL (7-18); eGFR NON AFRICAN AMERICAN > 90 mL/min (90-120)
[2017-07-03 08:35] VITALS: BP 116/66
--- NOTE | 2017-07-03 08:51 | NUR ---
AWAKE AND ALERT. DRANK MILK, AND DID NOT WANT CEREAL. NEW ORDER FOR ENSURE WITH MEALS. MEDICATIONS ADMINISTERED ORDERED. TELEMETRY SHOWS SR 70.DENIES ANY NEEDS AT THIS TIME.
--- NOTE | 2017-07-03 10:38 | NUR ---
Nutrition follow-up: Diet advanced to full liquids and pt consuming ~60% of meals Labs reviewed wt: 257# RDN ordered chocolate Boost with meals to increase kcal, protein intake. RDN following.
--- NOTE | 2017-07-03 11:08 | NUR ---
ROUNDING DONE WITH PATIENT UP WITH THERAPY WALKING IN HALLWAY WITH WALKER. DENIES NEEDS.
--- NOTE | 2017-07-03 13:13 | NUR ---
PATIENT IS CURRENTLY GETTING A XRAY OF HIS SMALL INTESTINE. STOOL COLLECTION THIS MORNING SUBMITTED TO THE LAB. PATIENT HAD WATERY GREEN STOOL 2 TIMES THIS MORNING.
--- NOTE | 2017-07-03 15:02 | NUR ---
PATIENT IS UP IN CHAIR AND IS UNHAPPY BECAUSE HE HAD TO DRINK THE BARIUM SWALLOW TO HAVE A SMALL BOWEL SERIES DONE. THERE IS A BLOCKAGE IN THE BOWEL, AND THEY WERE UNABLE TO COMPLETE THE SERIES. NOW PATIENT IS HAVING TO REMAIN IN THE CHAIR AND IS TEMPORARILY NPO.
--- NOTE | 2017-07-03 15:16 | NUR ---
PATIENT IS GOING BACK TO FINISH THE SMALL BOWEL SERIES NOW.
--- NOTE | 2017-07-03 18:11 | NUR ---
BACK FROM XRAY. PT HAD A LARGE GREEN WATERY BM. CLEANED UP AND PUT IN BAD WITH SR UP AND CALL LIGHT IN REACH
--- NOTE | 2017-07-03 20:28 | NUR ---
PT LYING IN BED, AWAKE, ALERT, JUST RETURNED FROM SMALL BOWEL X-RAY. NO NEEDS AT THIS TIME. CONTINUE TO MONITOR CLOSELY.
[2017-07-03 21:28] VITALS: BP 139/76
[2017-07-04 01:06] VITALS: BP 123/80
[2017-07-04 05:07] VITALS: BP 129/63
[2017-07-04 05:38] LABS: BASOPHILS 0.1 % (0-2); EOSINOPHILS 0.5 % (0-7); HEMATOCRIT 35.2 % (42.0-54.0); HEMOGLOBIN 11.2 g/dL (13.5-17.5); IMMATURE GRANULOCYTES 4.8 % (0-5); LYMPHOCYTES 20.8 % (15-50); MCH 29.9 pg (26.0-34.0); MCHC 31.8 g/dL (31.0-37.0); MCV 94.1 fL (80.0-100.0); MEAN PLATELET VOLUME 11.1 fL (7.4-10.4); MONOCYTES 10.5 % (2-11); NEUTROPHILS 63.3 % (40-80); PLATELET COUNT 346 10x3/uL (130-400); RBC 3.74 10x6/uL (4.20-6.10); RDW 15.5 % (11.5-14.5); WBC 8.3 10x3/uL (4.8-10.8)
[2017-07-04 06:03] LABS: CALC OSMOLALITY 277 mosm/kg (275-300); CALCIUM 8.7 mg/dL (8.5-10.1); CARBON DIOXIDE 29.9 mmol/L (21.0-32.0); CHLORIDE - SERUM 100 mmol/L (98-107); CREATININE - SERUM 0.8 mg/dL (0.6-1.3); GLUCOSE 119 mg/dL (74-106); MAGNESIUM - SERUM 2.2 mg/dL (1.8-2.4); POTASSIUM - SERUM 3.8 mmol/L (3.5-5.1); SODIUM 138 mmol/L (136-145); UREA NITROGEN 15 mg/dL (7-18); eGFR NON AFRICAN AMERICAN > 90 mL/min (90-120)
--- NOTE | 2017-07-04 06:46 | NUR ---
PT HAS BEEN AWAKE MOST OF THIS SHIFT, STILL SEVERAL BOUTS OF DIARRHEA AND INCONTINENCE, BUT DOES USE HIS URINAL AT TIMES. PT HAS BEEN RESTING COMFORTABLY. CONTINUE TO MONITOR CLOSELY.
[2017-07-04 08:34] VITALS: BP 118/81
--- NOTE | 2017-07-04 09:41 | NUR ---
TELEMETRY SR. UP TO CHAIR FOR BRK. IV PATENT. CALL LIGHT IN REACH. WILL CONT. PLAN OF CARE.
--- NOTE | 2017-07-04 10:24 | NUR ---
UP AMBULATING WITH PT ASSIST.
[2017-07-04 12:44] VITALS: BP 125/64
[2017-07-04 15:35] VITALS: BP 114/62
--- NOTE | 2017-07-04 19:32 | NUR ---
LYING IN BED WITH EYES CLOSED RESPIRATIONS EVEN AND UNLABORED ON ROOM AIR. 69 SR ON TELEMETRY. LEFT TRIPLE LUMEN INFUSING NS @ [facility]. CALL LIGHT IN REACH. NO NEEDS NOTED AT THIS TIME, WILL CONTINUE TO MONITOR. SEE NURSE ASSESSMENT.
[2017-07-04 21:42] VITALS: BP 125/66
--- NOTE | 2017-07-05 02:21 | NUR ---
CALL LIGHT IN REACH. WILL CONTINUE WITH PLAN OF CARE. 71 SR ON TELEMETRY
--- NOTE | 2017-07-05 05:10 | NUR ---
BED BATH AND LINENS CHANGED AFTER INCONTINENT EPISODE. AM MEDS GIVEN. NO CHANGES FROM PREVIOUS ASSESSMENT.
[2017-07-05 05:19] LABS: BASOPHILS 0.3 % (0-2); EOSINOPHILS 1.7 % (0-7); HEMOGLOBIN 10.9 g/dL (13.5-17.5); LYMPHOCYTES 32.6 % (15-50); MCH 30.1 pg (26.0-34.0); MCHC 32.1 g/dL (31.0-37.0); MCV 93.9 fL (80.0-100.0); MEAN PLATELET VOLUME 10.9 fL (7.4-10.4); MONOCYTES 13.5 % (2-11); NEUTROPHILS 45.9 % (40-80); PLATELET COUNT 331 10x3/uL (130-400); RBC 3.62 10x6/uL (4.20-6.10); RDW 15.7 % (11.5-14.5)
[2017-07-05 05:39] LABS: WBC 5.9 10x3/uL (4.8-10.8)
[2017-07-05 05:45] LABS: CALC OSMOLALITY 275 mosm/kg (275-300); CALCIUM 7.7 mg/dL (8.5-10.1); CARBON DIOXIDE 28.5 mmol/L (21.0-32.0); CHLORIDE - SERUM 102 mmol/L (98-107); CREATININE - SERUM 0.9 mg/dL (0.6-1.3); GLUCOSE 96 mg/dL (74-106); POTASSIUM - SERUM 4.2 mmol/L (3.5-5.1); SODIUM 138 mmol/L (136-145); UREA NITROGEN 13 mg/dL (7-18); eGFR NON AFRICAN AMERICAN > 90 mL/min (90-120)
--- NOTE | 2017-07-05 06:56 | NUR ---
NO CHANGES FROM PREVIOUS ASSESSMENT, CALL LIGHT IN REACH.
[2017-07-05 08:53] VITALS: BP 105/57
--- NOTE | 2017-07-05 09:18 | NUR ---
TELEMETRY SR. CONSENTS SIGNED FOR [facility]. WILL CONT. PLAN OF CARE.
--- NOTE | 2017-07-05 09:33 | NUR ---
TELEMETRY SR. IV PATENT. UP TO CHAIR WITH CALL LIGHT IN REACH. WILL CONT. PLAN OF CARE.
[2017-07-05 11:57] VITALS: BP 120/56
--- NOTE | 2017-07-05 12:00 | NUR ---
IV TELEMETRY DCD. ABD DRSG CHANGED. DC PLANS GIVEN. UNDERSTANDING VOICED.
--- NOTE | 2017-07-05 14:05 | NUR ---
ESCORTED TO CAR BY W/C.
--- NOTE | 2017-07-05 14:44 | NUR ---
Patient Name: JANELL CASANOVA Encounter No: [id number] : 1960 Primary Insurance: MEDICARE A & B Anticipated DC Date: 07-05-2017 Planned Disposition: Other Type of Facility External Planned Provider: [facility], caregiver and Home Health with [facility] LATE ENTRY: DCP follow-up note: CM RECEIVED DISCHARGE AND HOME HEALTH ORDERS. CM MET WITH PT IN ROOM, DISCUSSED DISCHARGE PLANNING AND NEEDS, MEDICAL EQUIPMENT, REHAB SERVICES AND HOME HEALTH. PT AGREEABLE WITH HOME HEALTH, NO PREFERENCE ON PROVIDER, REPORTS "MOM" WILL TAKE HIM HOME TODAY. PT ASKED CM TO CALL HIMANSHU. CM CALLED HIMANSHU AT [phone]; HIMANSHU IS PT'S [facility] CAREG[facility], REPORTS SHE IS ABLE TO LEARN DRESSING CHANGES AND WILL BE WITH PT DAILY AT HOME. SHE HAD NO PREFERENCE ON PROVIDER FOR HOME HEALTH, DENIES FURTHER DISCHARGE NEEDS, SHE WILL TRANSPORT PT HOME TODAY AT DISCHARGE. CHOICE SIGNED BY PT. IMPORTANT MESSAGE FROM MED[employer] PROVIDED AND EXPLAINED. [facility] AVAILABILITY FOR TOMORROW. CM SPOKE TO CARLA AT [facility], ; THEY WILL ACCEPT FOR ADMIT TOMORROW. CM FAXED REFERRAL AND DISCHARGE INFORMATION TO [facility] AT [phone]. PT AND CAREGIVER NOTIFIED IN ROOM, NO FURTHER NEEDS IDENTIFIED. CM RECEIVED CALL FROM [facility] [phone], WHO REPORTS THAT [facility] DID NOT RECEIVE ENTIRE FAX. CM REFAXED REFERRAL TO [facility] AT [phone]. Khalif Nelson, CASE MANAGEMENT
== END 2017-07-05 14:05 | disposition home health service (06) | DRG 329 ==
LOC: D.SDCHOLD 05:16 → D.M2 05:16 → D.MS 05:16 → D.SDCHOLD 08:15 → D.MS 13:08 → D.M2 06-22 11:33
PROVIDERS: Anesthesiology; Internal Medicine Pulmonary Disease; ADMIT Surgery
PROC: 0FT44ZZ Resection of Gallbladder, Percutaneous Endoscopic Approach (ICD-10-PCS; principal; 2017-06-20 08:15)
PROC: 0DTF0ZZ Resection of Right Large Intestine, Open Approach (ICD-10-PCS; 2017-06-20 08:15)
DX: C18.4 Malignant neoplasm of transverse colon (principal); J69.0 Pneumonitis due to inhalation of food and vomit; J18.9 Pneumonia, unspecified organism; I48.92 Unspecified atrial flutter; K91.872 Postprocedural seroma of a digestive system organ or structure following a digestive system procedure; J90 Pleural effusion, not elsewhere classified; K56.7 Ileus, unspecified; I48.91 Unspecified atrial fibrillation; E03.9 Hypothyroidism, unspecified; F79 Unspecified intellectual disabilities; R56.9 Unspecified convulsions; Y83.8 Other surgical procedures as the cause of abnormal reaction of the patient, or of later complication, without mention of misadventure at the time of the procedure

== ENCOUNTER 2017-08-04 13:14 | Inpatient (IN) | payer MEDICARE ==
[~2017-08-04] VITALS: Ht 177.8 cm; Wt 111.8 kg
--- NOTE | 2017-08-04 13:30 | NUR ---
PATEINT RECIEVED VIA STRETCHER ACCOMPANIED BY EMS AND CAREGIVER. ALERT AND ORIENTEDx3. PATIENT C/O SMALL AMOUNT OF PAIN TO ABDOMEN. SKIN INTACT WITH SMALL DRESSING IN PLACE TO LOWER ABDOMEN TO PRIOR SURGICAL SITE. DRESSING IS CDI. LUNG SOUNDS CLEAR. BOWEL SOUNDS HYPOACTIVE X4 QUADRANTS. PATIENT HAS NO OTHER COMPLAINTS AT THIS TIME.
[2017-08-04 14:36] VITALS: Ht 177.8 cm; Wt 111.8 kg
[2017-08-04 14:38] VITALS: BP 128/72
--- NOTE | 2017-08-04 19:35 | NUR ---
PATIENT HAD INCONTINENT EPISODE. CHANGED PATIENT'S BEDDING AND GOWN WITH JONO CEDENO. PATIENT DENIES OTHER NEEDS AT THIS TIME. ASSESSMENT COMPLETE. BED IN THE LOWEST POSITION, CALL LIGHT WITHIN REACH, AND BED ALARM ON. ENCOURAGED THE PATIENT TO CALL IF HE HAS NEEDS.
[2017-08-04 20:00] VITALS: BP 133/79
[2017-08-05 04:00] VITALS: BP 133/87
[2017-08-05 06:34] LABS: ALBUMIN 2.1 g/dL (3.4-5.0); ALKALINE PHOSPHATASE 162 U/L (46-116); ALT (SGPT) 19 U/L (10-68); BILIRUBIN - TOTAL 0.48 mg/dL (0.2-1.3); CALC OSMOLALITY 287 mosm/kg (275-300); CALCIUM 7.6 mg/dL (8.5-10.1); CARBON DIOXIDE 27.4 mmol/L (21.0-32.0); CHLORIDE - SERUM 111 mmol/L (98-107); CREATININE - SERUM 0.7 mg/dL (0.6-1.3); GLUCOSE 77 mg/dL (74-106); MAGNESIUM - SERUM 1.7 mg/dL (1.8-2.4); PHOSPHOROUS 2.6 mg/dL (2.5-4.9); POTASSIUM - SERUM 3.7 mmol/L (3.5-5.1); PROTEIN - SERUM 5.9 g/dL (6.4-8.2); SODIUM 146 mmol/L (136-145); UREA NITROGEN 8 mg/dL (7-18); eGFR NON AFRICAN AMERICAN > 90 mL/min (90-120)
[2017-08-05 06:49] LABS: HEMATOCRIT 36.5 % (42.0-54.0); HEMOGLOBIN 11.7 g/dL (13.5-17.5); MCH 30.2 pg (26.0-34.0); MCHC 32.1 g/dL (31.0-37.0); MCV 94.3 fL (80.0-100.0); MEAN PLATELET VOLUME 10.4 fL (7.4-10.4); RBC 3.87 10x6/uL (4.20-6.10); RDW 16.8 % (11.5-14.5); WBC 2.7 10x3/uL (4.8-10.8)
[2017-08-05 06:52] LABS: PLATELET COUNT 236 10x3/uL (130-400)
[2017-08-05 07:32] LABS: EOSINOPHILS 3 % (0-7); LYMPHOCYTES 44 % (15-50); MONOCYTES 14 % (2-11); NEUTROPHILS 36 % (40-80); PLATELET ESTIMATE NORMAL
[2017-08-05 08:30] VITALS: BP 136/70
[2017-08-05 12:31] VITALS: BP 145/87
--- NOTE | 2017-08-05 13:30 | NUR ---
PIV TO R AC LEAKING, SWOLLEN, AND RED. DC'D WITH CATHETER INTACT. PIV RESITED TO L UPPER ARM WITH 20 GUAGE. X1 ATTEMPT. RECONNECTED TO IVF. BED LOW, CALL LIGHT IN REACH, DENIES NEEDS CPOC.
--- NOTE | 2017-08-05 13:32 | NUR ---
RESTING QUIETLY IN BED. STILL C/O ABDOMINAL PAIN. NG TO LEFT NARE PATENT. DENIES NEEDS.
[2017-08-05 16:11] VITALS: BP 130/77
--- NOTE | 2017-08-05 19:38 | NUR ---
PATIENT RESTING IN BED WITH NO VISIBLE SIGNS OF DISTRESS. BROUGHT PATIENT ICE CHIPS PER HIS REQUEST. BED IN LOWEST POSITION, CALL LIGHT WITHIN REACH. AND BED ALARM ON. ENCOURAGED THE PATIENT TO CALL IF HE HAS NEEDS.
[2017-08-05 20:00] VITALS: BP 121/67
[2017-08-06 04:00] VITALS: BP 101/40
[2017-08-06 05:36] LABS: BASOPHILS 0.2 % (0-2); EOSINOPHILS 3.3 % (0-7); HEMATOCRIT 40.6 % (42.0-54.0); HEMOGLOBIN 12.9 g/dL (13.5-17.5); IMMATURE GRANULOCYTES 0.2 % (0-5); LYMPHOCYTES 32.4 % (15-50); MCH 30.2 pg (26.0-34.0); MCHC 31.8 g/dL (31.0-37.0); MCV 95.1 fL (80.0-100.0); NEUTROPHILS 48.9 % (40-80); PLATELET COUNT 257 10x3/uL (130-400); RBC 4.27 10x6/uL (4.20-6.10); RDW 16.8 % (11.5-14.5)
[2017-08-06 05:47] LABS: WBC 4.3 10x3/uL (4.8-10.8)
[2017-08-06 06:15] LABS: ALKALINE PHOSPHATASE 158 U/L (46-116); ALT (SGPT) 18 U/L (10-68); BILIRUBIN - TOTAL 0.37 mg/dL (0.2-1.3); CALCIUM 7.5 mg/dL (8.5-10.1); CARBON DIOXIDE 27.1 mmol/L (21.0-32.0); CHLORIDE - SERUM 110 mmol/L (98-107); CREATININE - SERUM 0.7 mg/dL (0.6-1.3); PROTEIN - SERUM 6.1 g/dL (6.4-8.2); SODIUM 146 mmol/L (136-145); UREA NITROGEN 7 mg/dL (7-18); eGFR NON AFRICAN AMERICAN > 90 mL/min (90-120)
[2017-08-06 06:20] LABS: CALC OSMOLALITY 286 mosm/kg (275-300); GLUCOSE 67 mg/dL (74-106); POTASSIUM - SERUM 3.1 mmol/L (3.5-5.1)
[2017-08-06 08:45] VITALS: BP 182/87
--- NOTE | 2017-08-06 09:24 | NUR ---
PT AOX2 RESP EVEN AND NONLABORED PT DENIES NEEDS AT THIS TIME IV TO LEFT UPPER ARM PATENT AND INTACT AT THIS TIME SRX2 BED AT LOWEST SETTING CALL LIGHT WITHIN REACH WILL CONTINUE TO MONITOR
--- NOTE | 2017-08-06 11:24 | NUR ---
Patient Name: JANELL CASANOVA Admission Status: Elective Accout number: [id number] Admission Date: 08-04-2017 : 1960 Admission Diagnosis: Attending: RAFAEL BAI Current LOS: 2 Anticipated DC Date: 08-07-2017 Planned Disposition: Home Primary Insurance: MEDICARE A & B Discharge Planning Comments: PATIENTS CAREGIVER (LESLIE MURILLO) IS IN THE ROOM WITH PATIENT. LESLIE STATED PATIENT LIVES ALONE AT [facility] - NO STEPS OR STAIRS AT APARTMENT. PATIENT ATTENDS 1ST STEP DURING DAY. CAREGIVER IS WITH PATIENT 6AM-8AM THEN AGAIN FROM 3PM-6PM DAILY. PATIENT DOES NEED ASSISTANCE WITH WASHING HIS HAIR AND MEDICATION. PATIENTS PCP IS DR. MARAVILLA AND [facility]. CAREGIVER STATED PATIENT SHOULD NOT NEED HOME HEALTH AT THIS TIME. CM WILL CONTINUE TO FOLLOW PATIENT WITH D/C NEEDS AND PLANS. PCP DR. MARAVILLA [facility]- [phone] LESLIE MURILLO (CAREGIVER) [phone] [employer] System Specialist: Shruthi Mullins How many steps to enter\exit or inside your home? 0 0 * PCP DR. MARAVILLA 0 * Pharmacy [facility] 0 * Preadmission Environment Home Alone 0 * ADLs Partial Dependent 0 * Partial ADLs (Assistance needed) Bathing Medication Management 0 * Equipment None 0 * List name and contact numbers for known caregivers / representatives who currently or will assist patient after discharge: LESLIE MURILLO (CAREGIVER) [phone] 0 * Community resources currently utilized Other 0 * Please name any agencies selected above. 1ST STEP 0 * Additional services required to return to the preadmission environment? Yes 0 * Can the patient safely return to the preadmission environment? Yes 0 * Has this patient been hospitalized within the prior 30 days at any hospital? No 0 Grand Total: 0
[2017-08-06 12:49] VITALS: BP 110/68
[2017-08-06 16:45] VITALS: BP 99/64
--- NOTE | 2017-08-06 18:10 | NUR ---
OT NOTE: PT COMPLETED BUE COORDINATION AXS. THANK YOU, KIMBERLY RENDON/Gaviota
--- NOTE | 2017-08-06 19:55 | NUR ---
PATIENT RESTING IN BED AND DENIES NEEDS AT THIS TIME. BED IN LOWEST POSITION, CALL LIGHT WITHIN REACH, AND BED ALARM ON. ENCOURAGED THE PATIENT TO CALL IF HE HAS NEEDS.
[2017-08-06 20:00] VITALS: BP 113/52
[2017-08-07 04:00] VITALS: BP 98/47
[2017-08-07 05:45] LABS: CALC OSMOLALITY 280 mosm/kg (275-300); CALCIUM 7.4 mg/dL (8.5-10.1); CARBON DIOXIDE 28.3 mmol/L (21.0-32.0); CHLORIDE - SERUM 107 mmol/L (98-107); CREATININE - SERUM 0.8 mg/dL (0.6-1.3); GLUCOSE 81 mg/dL (74-106); POTASSIUM - SERUM 3.4 mmol/L (3.5-5.1); SODIUM 142 mmol/L (136-145); eGFR NON AFRICAN AMERICAN > 90 mL/min (90-120)
[2017-08-07 05:58] LABS: BASOPHILS 0.4 % (0-2); EOSINOPHILS 2.5 % (0-7); HEMATOCRIT 35.4 % (42.0-54.0); HEMOGLOBIN 11.5 g/dL (13.5-17.5); IMMATURE GRANULOCYTES 0.2 % (0-5); LYMPHOCYTES 35.7 % (15-50); MCH 30.5 pg (26.0-34.0); MCHC 32.5 g/dL (31.0-37.0); MCV 93.9 fL (80.0-100.0); MEAN PLATELET VOLUME 10.5 fL (7.4-10.4); MONOCYTES 9.6 % (2-11); NEUTROPHILS 51.6 % (40-80); PLATELET COUNT 223 10x3/uL (130-400); RBC 3.77 10x6/uL (4.20-6.10); RDW 16.1 % (11.5-14.5); WBC 5.3 10x3/uL (4.8-10.8)
[2017-08-07 06:05] LABS: UREA NITROGEN 9 mg/dL (7-18)
--- NOTE | 2017-08-07 07:05 | NUR ---
REPORT RECEIVED, ASSUMED CARE OF PT. RESTING, EASILY AROUSED. NO NEEDS VOICED AT THIS TIME. L UPPER ARM IV INFUSING ORDERED, DRSG C/D/I. PLEXI PULSE BOOTS IN PLACE BILATERALLY. BED IN LOWEST POSITION, SIDE RAILS UP X 2, CALL LIGHT WITHIN REACH.
[2017-08-07 08:47] VITALS: BP 95/63
[2017-08-07 12:48] VITALS: BP 82/52
--- NOTE | 2017-08-07 14:35 | NUR ---
OT NOTE: PERFORMED BED MOB TRAINING; PT REPORTS PAIN IS WORSE IN ABDOMEN, HOWEVER, NOT SHOWING FACIAL GRIMACES OR C/O PAIN DURING FUNCITONAL TASKS. PHYS THERAPY JUST RECENTLY COMPLETED AMBULATION WITH PT AND HE WAS FATIGUED. WILL ATTEMPT EXS LATER. THANK YOU , AGUSTINA BREWER,OTR/L
[2017-08-07 16:46] VITALS: BP 88/61
--- NOTE | 2017-08-07 17:53 | NUR ---
OT NOTE: PT COMPLETED BUE AAROM FOR INCREASED I WITH ADLS. THANK YOU, KIMBERLY RENDON/Gaviota
--- NOTE | 2017-08-07 19:35 | NUR ---
PATIENT RESTING IN BED AND DENIES NEEDS AT THIS TIME. BED IN LOWEST POSITION, CALL LIGHT WITHIN REACH. AND BED ALARM ON. ENCOURAGED THE PATIENT TO CALL IF HE HAS NEEDS.
[2017-08-07 20:00] VITALS: BP 97/50
[2017-08-08] VITALS: BP 93/66
[2017-08-08 04:00] VITALS: BP 136/81
[2017-08-08 06:13] LABS: BASOPHILS 0.5 % (0-2); EOSINOPHILS 3.3 % (0-7); HEMATOCRIT 36.2 % (42.0-54.0); HEMOGLOBIN 11.7 g/dL (13.5-17.5); LYMPHOCYTES 38.4 % (15-50); MCH 30.2 pg (26.0-34.0); MCHC 32.3 g/dL (31.0-37.0); MCV 93.5 fL (80.0-100.0); MONOCYTES 12.6 % (2-11); NEUTROPHILS 45.2 % (40-80); PLATELET COUNT 236 10x3/uL (130-400); RBC 3.87 10x6/uL (4.20-6.10); RDW 16.2 % (11.5-14.5); WBC 4.2 10x3/uL (4.8-10.8)
--- NOTE | 2017-08-08 07:05 | NUR ---
REPORT RECEIVED, ASSUMED CARE OF PT. RESTING WITH EYES CLOSED, EASILY AROUSED. R FOREARM IV INFUSING ORDERED, DRSG C/D/I. PLEXI PILSE BOOTS IN PLACE BILATERALLY. BED IN LOWEST POSITION, SIDE RAILS UP X 2, CALL LIGHT WITHIN REACH.
[2017-08-08 08:05] VITALS: BP 107/74
[2017-08-08 12:04] VITALS: BP 117/75
--- NOTE | 2017-08-08 14:32 | NUR ---
OT NOTE: PT ABLE TO PERFORM IN ROOM AMBULATION WITH CGA AND USE OF RW; TRANSFERS INTO BED WITH SPV; BED MOB WITH MIN ASSIST TO SCOOT UP IN BED; UE AROM EXS TO INCLUDE ALL JOINTS TO ASSIST WITH STRENGTH AND MOBILITY. AGUSTINA BREWER, OTR/L
[2017-08-08] MEDS ORDERED: MIRALAX17 GM PO (15:25)
[2017-08-08] MEDS ORDERED: REGLAN INJ10 MG/2 ML PO (15:25)
[2017-08-08 16:23] VITALS: BP 108/64
--- NOTE | 2017-08-08 16:52 | NUR ---
DISCHARGE INSTRUCTIONS GIVEN ORDERED TO PT AND CAREGIVER, VERBALIZED UNDERSTANDING AND SIGNED. R FOREARM IV D/C'D, CATHETER INTACT, BLEED CONTROL, BANDAGE APPLIED. ALL QUESTIONS ANSWERED, NO NEEDS VOICED AT THIS TIME.
--- NOTE | 2017-08-08 17:13 | NUR ---
PT DISCHARGED VIA WHEELCHAIR TO [facility]. NO NEEDS VOICED AT THIS TIME. PERSONAL BELONGINGS WITH PT.
== END 2017-08-08 17:15 | disposition home or self-care (01) | DRG 390 ==
LOC: D.MS 13:14
PROVIDERS: Family Medicine; Surgery; ADMIT Surgery
DX: K56.600 Partial intestinal obstruction, unspecified as to cause (principal); F79 Unspecified intellectual disabilities; G40.909 Epilepsy, unspecified, not intractable, without status epilepticus; E03.9 Hypothyroidism, unspecified; T17.900A Unspecified foreign body in respiratory tract, part unspecified causing asphyxiation, initial encounter; R25.1 Tremor, unspecified

== ENCOUNTER → 2018-03-20 08:54 | Outpatient (CLI) | payer MEDICARE ==
[2017-08-04 14:36] VITALS: BMI 35.3
[~2018-03-20 08:54] MED LIST changes: +MIRALAX17 GM PO; +REGLAN INJ10 MG/2 ML PO
== END | disposition home or self-care (01) ==
LOC: D.CT 08:54
DX: C18.2 Malignant neoplasm of ascending colon (principal)

== ENCOUNTER → 2018-03-26 13:12 | Outpatient (CLI) | payer MEDICARE ==
[2017-08-04 14:36] VITALS: BMI 35.3
== END | disposition home or self-care (01) ==
LOC: D.LAB 10:15
DX: C18.2 Malignant neoplasm of ascending colon (principal)

== ENCOUNTER → 2018-05-28 13:51 | Outpatient (CLI) | payer MEDICARE ==
[2017-08-04 14:36] VITALS: BMI 35.3
== END | disposition home or self-care (01) ==
LOC: D.RAD 05-24 08:00 → D.SP 05-24 08:00 → D.RAD 05-24 13:00 → D.SP 13:51 → D.RAD 15:00
DX: M25.552 Pain in left hip (principal); Z01.812 Encounter for preprocedural laboratory examination

== ENCOUNTER → 2018-10-03 09:00 | Outpatient (CLI) | payer MEDICARE ==
[2017-08-04 14:36] VITALS: BMI 35.3
[2018-10-03 09:31] LABS: BASOPHILS 0.3 % (0-2); EOSINOPHILS 2.8 % (0-7); HEMATOCRIT 41.3 % (42.0-54.0); HEMOGLOBIN 13.8 g/dL (13.5-17.5); IMMATURE GRANULOCYTES 0.2 % (0-5); LYMPHOCYTES 32.4 % (15-50); MCH 30.7 pg (26.0-34.0); MCHC 33.4 g/dL (31.0-37.0); MEAN PLATELET VOLUME 11.1 fL (7.4-10.4); MONOCYTES 11.8 % (2-11); NEUTROPHILS 52.5 % (40-80); RBC 4.49 10x6/uL (4.20-6.10); RDW 13.9 % (11.5-14.5)
[2018-10-03 09:34] LABS: PLATELET COUNT 133 10x3/uL (130-400)
[2018-10-03 09:47] LABS: ALBUMIN 3.2 g/dL (3.4-5.0); ALKALINE PHOSPHATASE 143 U/L (46-116); ALT (SGPT) 24 U/L (10-68); BILIRUBIN - INDIRECT 0.15 mg/dL (0.00-1.00); BILIRUBIN - TOTAL 0.25 mg/dL (0.2-1.3); CALC OSMOLALITY 280 mosm/kg (275-300); CALCIUM 8.9 mg/dL (8.5-10.1); CARBON DIOXIDE 26.1 mmol/L (21.0-32.0); CHLORIDE - SERUM 106 mmol/L (98-107); CHOL - HDL RATIO 5.2 ratio (2.3-4.9); CHOLESTEROL, TOTAL 182 mg/dL (0-200); CREATININE - SERUM 0.8 mg/dL (0.6-1.3); GLUCOSE 97 mg/dL (74-106); HDL CHOLESTEROL 35 mg/dL (32-96); LDL CHOLESTEROL 92 mg/dL (0-100); LDL-HDL RATIO 2.6 ratio (1.5-3.5); POTASSIUM - SERUM 4.6 mmol/L (3.5-5.1); PROTEIN - SERUM 7.8 g/dL (6.4-8.2); SODIUM 140 mmol/L (136-145); TRIGLYCERIDE 278 mg/dL (30-200); UREA NITROGEN 17 mg/dL (7-18); VALPROIC ACID (DEPAKOTE) 55.8 ug/mL (50.0-100.0); eGFR NON AFRICAN AMERICAN > 90 mL/min (90-120)
== END | disposition home or self-care (01) ==
LOC: D.LAB 09:00
PROVIDERS: Psychiatry & Neurology Psychiatry
DX: Z51.81 Encounter for therapeutic drug level monitoring (principal); Z79.899 Other long term (current) drug therapy; F20.9 Schizophrenia, unspecified